=== PATIENT | male | born 1960 ===

== ENCOUNTER 2016-07-26 07:29 | Emergency (ER) | payer MEDICAID ==
[2016-07-26 07:37] VITALS: BMI 25.0
[2016-07-26 07:41] VITALS: TEMP 97.9; O2SAT 99
--- NOTE | 2016-07-26 07:51 | C.PDOC ---
History Of Present Illness 55 y/o male presents to ED requesting detox for alcohol. Patient states his last drink was last night. Patient denies any current physical complaints. Time Seen by Provider: 07/26/16 07:36 Chief Complaint (Nursing): Substance Abuse History Per: Patient History/Exam Limitations: no limitations Onset/Duration Of Symptoms: Persistent Current Symptoms Are (Timing): Still Present Modifying Factor(s): Alcohol Associated Symptoms: denies: Suicidal Thoughts, Suicidal Plan Past Medical History Reviewed: Historical Data, Nursing Documentation, Vital Signs Vital Signs: Last Vital Signs Temp 97.9 F 07/26/16 07:36 Pulse 82 07/26/16 08:00 Resp 18 07/26/16 08:00 BP 180/85 H 07/26/16 08:00 Pulse Ox 99 07/26/16 08:01 - Medical History PMH: Depression, HTN Family History: States: No Known Family Hx - Social History Hx Alcohol Use: Yes Hx Substance Use: No Review Of Systems Except As Marked, All Systems Reviewed And Found Negative. Constitutional: Negative for: Fever, Chills ENT: Negative for: Throat Pain Cardiovascular: Negative for: Chest Pain, Palpitations Respiratory: Negative for: Cough, Shortness of Breath Gastrointestinal: Negative for: Nausea, Vomiting, Abdominal Pain, Diarrhea Skin: Negative for: Rash Neurological: Negative for: Headache, Dizziness Psych: Negative for: Withdrawal Physical Exam - Physical Exam Appears: Well, Non-toxic, No Acute Distress Skin: Normal Color, Warm, Dry Oral Mucosa: Moist Cardiovascular: Rhythm Regular Respiratory: Normal Breath Sounds, No Rales, No Rhonchi, No Wheezing Gastrointestinal/Abdominal: Normal Exam, Bowel Sounds, Soft, No Tenderness Back: Normal Inspection Extremity: Normal ROM Extremity: Bilateral: Normal Color And Temperature Neurological/Psych: Oriented x3 Gait: Steady ED Course And Treatment O2 Sat by Pulse Oximetry: 99 (RA) Pulse Ox Interpretation: Normal Progress Note: Spoke with crisis counselor, there are no detox beds currently available. Explained to patient that he will need to return to ED at later date to try again. Patient also given prescreening phone number. He understands he should return to ED if he develops any concerning symptoms. Disposition Counseled Patient/Family Regarding: Diagnosis, Need For Followup - Disposition Referrals: [facility] [Outside] Disposition: HOME/ ROUTINE Disposition Time: 07:55 Condition: STABLE Additional Instructions: RETURN TO EMERGENCY ROOM AT LATER DATE/TIME TO TRY FOR DETOX CALL FOR DETOX PRESCREENING Instructions: Alcohol Dependence (ED) Print Language: LATVIAN - POA Present On Arrival: None - Clinical Impression Clinical Impression: Alcohol dependence - Scribe Statement The provider has reviewed the documentation as recorded by the Scribe SGJeanne Provider Attestation: All medical record entries made by the Bertramibe were at my direction and personally dictated by me. I have reviewed the chart and agree that the record accurately reflects my personal performance of the history, physical exam, medical decision making, and the department course for this patient. I have also personally directed, reviewed, and agree with the discharge instructions and disposition.
[2016-07-26 08:26] VITALS: BP 180/85; PULSE 82; RESP 18
== END 2016-07-26 08:00 | disposition home or self-care (01) ==
LOC: C.ER 07:29
DX: F10.20 Alcohol dependence, uncomplicated (principal); Y90.9 Presence of alcohol in blood, level not specified

== ENCOUNTER 2016-10-03 08:26 | Emergency (ER) | payer MEDICAID, OTHER ==
[2016-10-03 08:27] VITALS: BMI 25.0
[2016-10-03 08:40] VITALS: RESP 18; TEMP 98.4
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
[2016-10-03 09:23] VITALS: BP 162/95; PULSE 80
[2016-10-03 09:46] VITALS: O2SAT 96
== END 2016-10-03 09:23 | disposition home or self-care (01) ==
LOC: C.ER 08:26
DX: F10.20 Alcohol dependence, uncomplicated (principal); Y90.9 Presence of alcohol in blood, level not specified; Z76.0 Encounter for issue of repeat prescription; I10 Essential (primary) hypertension

== ENCOUNTER 2017-03-10 21:47 | Emergency (ER) | payer MEDICAID ==
[2017-03-10 21:47] VITALS: BMI 25.0
[2017-03-10 22:59] LABS: EOS # 0.1 K/uL (0.0-0.7); HEMOGLOBIN 13.6 g/dL (12.0-18.0); LYMPH # 1.7 K/uL (1.0-4.3); MEAN PLATELET VOLUME 7.9 fL (7.2-11.7); NEUT # 3.2 K/uL (1.8-7.0); NRBC % 0.1 % (0.0-2.0); RBC 4.26 Mil/uL (4.40-5.90); RED CELL DISTRIBUTION WIDTH 14.4 % (11.5-14.5)
[2017-03-10 23:07] LABS: BASO % 0.8 % (0.0-2.0); EOS % 2.4 % (0.0-4.0); LYMPH % 31.2 % (20.0-40.0); MEAN CELL VOLUME 93.1 fL (80.0-94.0); MEAN CORPUSCULAR HEMOGLOBIN 31.9 pg (27.0-31.0); MEAN CORPUSCULAR HGB CONC 34.3 g/dL (33.0-37.0); MONO # 0.4 K/uL (0.0-0.8); MONO % 6.6 % (0.0-10.0); WHITE BLOOD COUNT 5.3 K/uL (4.8-10.8)
[2017-03-10 23:08] LABS: ALB/GLOB RATIO 1.1 (1.0-2.1); ALBUMIN 4.1 g/dL (3.5-5.0); ALT/SGPT 23 U/L (21-72); AST/SGOT 31 U/L (17-59); BLOOD UREA NITROGEN 7 mg/dL (9-20); CALCIUM 8.4 mg/dl (8.6-10.4); GFR AFRICAN-AMERICAN > 60; GFR NON-AFRICAN AMERICAN > 60
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
--- NOTE | 2017-03-11 00:48 | CT ---
EXAM: CT Head Without Intravenous Contrast EXAM DATE/TIME: 03/10/2017 10:19 PM CLINICAL HISTORY: 56 years old, male; Injury or trauma; Fall; Initial encounter; Abrasion; Forehead; Additional info: S/P fall bed [address] TECHNIQUE: Axial computed tomography images of the head/brain without intravenous contrast. All CT scans at this facility use one or more dose reduction techniques, viz.: automated exposure control; ma/kV adjustment per patient size (including targeted exams where dose is matched to indication; i.e. head); or iterative reconstruction technique. Coronal and sagittal reformatted images were created and reviewed. COMPARISON: No relevant prior studies available. FINDINGS: There is a right frontal craniotomy. There is a small underlying chronic subdural collection measuring up to 4 mm in width. No hyperdensity to suggest acute hemorrhage into the subdural collection. Small amount of subcutaneous edema in the right maxillary region. Subcutaneous soft tissue swelling present in the left frontal region. There is a faint area of increased attenuation in the right occipital lobe series 4 image 21-23. It appears to lie just lateral to the falx rather than along the course of the falx thus is not felt to represent the volume averaging in this region frequently seen. It would be an unusual appearance for acute traumatic hemorrhage although still be possible. There is suggestive of adjacent edema. Underlying lesion would be difficult to exclude. I have requested priors for correlation. Followup with contrast CT or MRI may be helpful. IMPRESSION: Right frontal craniotomy with underlying chronic subdural collection. Faint hyperdensity right occipital lobe as discussed in detail above for which followup is recommended.
--- NOTE | 2017-03-11 01:20 | CT ---
EXAM: CT Temporal Bones/Iac/Orbits/Sella Without Intravenous Contrast EXAM DATE/TIME: 03/10/2017 10:29 PM CLINICAL HISTORY: 56 years old, male; Injury or trauma; Fall; Initial encounter; Abrasion; Cheek bone and head/scalp and forehead; Loss of consciousness not known; Right TECHNIQUE: Axial computed tomography images of the temporal bones/iac/orbits/sella without intravenous contrast. All CT scans at this facility use one or more dose reduction techniques, viz.: automated exposure control; ma/kV adjustment per patient size (including targeted exams where dose is matched to indication; i.e. head); or iterative reconstruction technique. Coronal and sagittal reformatted images were created and reviewed. COMPARISON: No relevant prior studies available. FINDINGS: Dental hardware producing artifact. Subcutaneous soft tissue swelling right maxillary and left frontal regions. Scattered cutaneous calcifications are noted. Mild mucosal thickening of the ethmoid and frontal sinuses and left sphenoid sinus. There is right nasal bone deformity that appears chronic. No acute fractures identified. 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 I have requested prior studies for correlation and will addend when they arrive.
[2017-03-11 06:34] VITALS: O2SAT 96
[2017-03-11 06:59] VITALS: BP 131/77; PULSE 76; RESP 18; TEMP 97.8
== END 2017-03-11 06:59 | disposition home or self-care (01) ==
LOC: C.ER 21:47
DX: S00.83XA Contusion of other part of head, initial encounter (principal); W01.0XXA Fall on same level from slipping, tripping and stumbling without subsequent striking against object, initial encounter; F10.10 Alcohol abuse, uncomplicated; I10 Essential (primary) hypertension

== ENCOUNTER 2017-03-11 12:32 | Emergency (ER) | payer MEDICAID ==
[2017-03-11 12:32] VITALS: BMI 25.0
[2017-03-11 13:26] VITALS: O2SAT 98
--- NOTE | 2017-03-11 14:17 | C.PDOC ---
History Of Present Illness 56 y/o male presents to ED by ambulance with complaints of unstable gait and public intoxication. Pt was previously admitted today and he was discharged at 7AM. Pt's previous evaluation included face contusion, Head CT which noted chronic right subdural hematoma with no acute findings, and an unremarkable facial CT. Pt currently denies any other physical complaints, falls or new injuries. Time Seen by Provider: 03/11/17 13:05 Chief Complaint (Nursing): Substance Abuse History Per: Patient History/Exam Limitations: no limitations Onset/Duration Of Symptoms: Hrs Current Symptoms Are (Timing): Still Present Suicide/Self Injury Attempted (Context): None Associated Symptoms: denies: Anger, Depression, Suicidal Thoughts Involuntary Hold By: None Recent travel outside of the [place]: No Past Medical History Reviewed: Historical Data, Nursing Documentation, Vital Signs Vital Signs: Last Vital Signs Temp 97.8 F 03/11/17 14:52 Pulse 85 03/11/17 14:52 Resp 18 03/11/17 14:52 BP 141/89 03/11/17 14:52 Pulse Ox 98 03/11/17 15:33 - Medical History PMH: Depression, HTN Surgical History: No Surg Hx Family History: States: Unknown Family Hx - Social History Hx Alcohol Use: Yes Hx Substance Use: No - Immunization History Hx Tetanus Toxoid Vaccination: No Hx Influenza Vaccination: No Hx Pneumococcal Vaccination: No Review Of Systems Constitutional: Negative for: Fever, Chills Cardiovascular: Negative for: Chest Pain Respiratory: Negative for: Shortness of Breath Gastrointestinal: Negative for: Nausea, Vomiting, Diarrhea Skin: Negative for: Rash Neurological: Positive for: Other (Unstable gait). Negative for: Weakness, Numbness Psych: Negative for: Depression, Suicidal ideation Physical Exam - Physical Exam Appears: Well, Non-toxic Skin: Other (chronic contusions, abrasions, and swelling to face, 6x6 cm soft hematoma R occipital area, nontender, no abrasion- chronic. ) Eye(s): left: Other (Edema) Oral Mucosa: Moist Neck: Supple Chest: Symmetrical, No Tenderness Cardiovascular: Rhythm Regular Respiratory: Normal Breath Sounds, No Rales, No Rhonchi, No Wheezing Gastrointestinal/Abdominal: Soft, No Tenderness Neurological/Psych: Oriented x3, Normal Speech, Normal Cognition, Other (no focal deficits) Gait: Unsteady ED Course And Treatment O2 Sat by Pulse Oximetry: 98 (RA) Pulse Ox Interpretation: Normal Progress Note: 1500: d/w pt, trying to ambulate to leave, he is despondent, passively suicidal, helpless, hopeless. multiple failed detox. left 3 wives in [facility] 15 yrs ago, daughter is a physician in [facility]. Convinced pt to stay for voluntary detox and social assistance. librium 50 po ordered. 1530: Security and Nursing @ bedside to encourage pt to stay for detox, pending librium. 1545: pt eloped from ED, Security cameras captured pt walking through hospital and out the front entrance w a stable fast-paced gait. Crisis Evaluators aware. Medical Decision Making Medical Decision Making: yesterday's eval was 15th head CT for fall/trauma multiple neck CT's chronic alcoholism, nonfunctional Disposition - Disposition Disposition: ELOPEMENT - ER ONLY Disposition Time: 15:40 Condition: GOOD Forms: [facility] (Brazilian) - Clinical Impression Clinical Impression: Alcohol dependence - Scribe Statement The provider has reviewed the documentation as recorded by the Scribvaishali Fairchild All medical record entries made by the Scribe were at my direction and personally dictated by me. I have reviewed the chart and agree that the record accurately reflects my personal performance of the history, physical exam, medical decision making, and the department course for this patient. I have also personally directed, reviewed, and agree with the discharge instructions and disposition.
[2017-03-11 15:01] VITALS: BP 141/89; PULSE 85; RESP 18; TEMP 97.8
== END 2017-03-11 15:40 | disposition left against medical advice (07) ==
LOC: C.ER 12:32
DX: F10.20 Alcohol dependence, uncomplicated (principal); I10 Essential (primary) hypertension